=== PATIENT | female | born 1960 | race Caucasian/White ===

== ENCOUNTER 2020-12-13 07:24 | Outpatient (CLI) | payer OTHER | END 2020-12-13 08:54 | disposition home or self-care (01) | LOC: TOM 07:24 | PROVIDERS: ATTEND Urology | DX: D30.01 Benign neoplasm of right kidney (principal) ==

== ENCOUNTER 2022-06-05 07:56 | Outpatient (CLI) | payer OTHER | END 2022-06-05 08:12 | disposition home or self-care (01) | LOC: TOM 07:56 | DX: Z85.528 Personal history of other malignant neoplasm of kidney (principal) ==

== ENCOUNTER 2024-09-19 07:05 | Outpatient (CLI) | payer OTHER | END 2024-09-19 07:10 | disposition home or self-care (01) | LOC: SONOGRAMA 07:05 | DX: K76.0 Fatty (change of) liver, not elsewhere classified (principal) ==

== ENCOUNTER 2024-10-05 15:16 | Outpatient (CLI) | payer OTHER | END 2024-10-05 15:26 | disposition home or self-care (01) | LOC: RAD 15:16 | PROVIDERS: ATTEND Internal Medicine Pulmonary Disease | DX: J45.21 Mild intermittent asthma with (acute) exacerbation (principal) ==